=== PATIENT | male | born 1980 | race Two or more races ===

== ENCOUNTER 2023-12-30 21:37 | Emergency (ER) | payer OTHER ==
[~2023-12-30] VITALS: Ht 157.5 cm; Wt 77.1 kg
[2023-12-30 22:00] VITALS: O2SAT 99
[2023-12-30] MEDS ORDERED: ACETAMINOPHEN ES 500 MG TABLET ONE (22:03)
[2023-12-30] MEDS: ACETAMINOPHEN ES 500 MG TABLET PO ONE (22:06)
== END 2023-12-30 22:33 | disposition home or self-care (01) ==
LOC: ER 21:46
DX: S39.012A Strain of muscle, fascia and tendon of lower back, initial encounter (principal); W01.0XXA Fall on same level from slipping, tripping and stumbling without subsequent striking against object, initial encounter; Y93.89 Activity, other specified; Y92.89 Other specified places as the place of occurrence of the external cause; Y99.8 Other external cause status

== ENCOUNTER 2024-08-17 08:24 | Emergency (ER) | payer OTHER ==
[~2024-08-17] VITALS: Ht 157.5 cm; Wt 77.6 kg
[2024-08-17 08:34] VITALS: BP 138/85; TEMP 98.1; O2SAT 97
[2024-08-17] MEDS ORDERED: KETOROLAC TROMETHAMINE 15 MG/ML VIAL ONE (09:08)
[2024-08-17] MEDS ORDERED: BENZ-13 PO (09:15)
[2024-08-17] MEDS ORDERED: IBUP-1955 PO (09:15)
[2024-08-17] MEDS: KETOROLAC TROMETHAMINE 15 MG/ML VIAL IM ONE (09:24)
== END 2024-08-17 09:29 | disposition home or self-care (01) ==
LOC: ER 08:28
DX: J06.9 Acute upper respiratory infection, unspecified (principal); R05.9 Cough, unspecified; R09.81 Nasal congestion
CPT/HCPCS: 99283; 96372; J1885

== ENCOUNTER 2024-11-17 20:08 | Emergency (ER) | payer OTHER ==
[~2024-11-17] VITALS: Ht 165.1 cm; Wt 77.1 kg
[~2024-11-17 20:08] MED LIST: BENZ-13 PO; IBUP-1955 PO
[2024-11-17 20:16] VITALS: TEMP 98
[2024-11-17 20:52] LABS: PLATELET COUNT (AUTO) 205 K/uL (150-450); RED BLOOD CELL COUNT(AUTO) 5.18 MIL/uL (4.5-6.0); RED CELL DISTRIBUTION WIDTH 12.9 % (11.5-15.0); WHITE BLOOD COUNT (AUTO) 5.3 K/uL (4.3-11.0)
[2024-11-17 21:08] LABS: CALCIUM, SERUM 9.0 mg/dL (8.5-10.1); CREATININE 1.3 mg/dL (0.6-1.3); SODIUM SERUM 139 mmol/L (136-145); UREA NITROGEN, BLOOD 14 mg/dL (7-18)
[2024-11-17 21:54] VITALS: BP 128/80; O2SAT 98
== END 2024-11-17 22:01 | disposition home or self-care (01) ==
LOC: ER 20:12
DX: R07.89 Other chest pain (principal)
CPT/HCPCS: 36415; 71045-TC; 80048-TC; 84484-TC; 85025-TC